=== PATIENT | male | born 1950 | race Caucasian/White ===

== ENCOUNTER 2021-08-03 11:54 | Outpatient (RCR) | payer MEDICARE, MEDICAID, SELFPAY | END 2021-11-04 10:21 | disposition home or self-care (01) | LOC: HO.WCC 11:54 | PROVIDERS: PCP Internal Medicine; Visit Provider Physician Assistant | DX: Z09 Encounter for follow-up examination after completed treatment for conditions other than malignant neoplasm (principal); M06.871 Other specified rheumatoid arthritis, right ankle and foot; I73.9 Peripheral vascular disease, unspecified; I11.0 Hypertensive heart disease with heart failure; I50.9 Heart failure, unspecified; Z87.2 Personal history of diseases of the skin and subcutaneous tissue | CPT/HCPCS: 11042; 15275; 99212; 99213; Q4187 ==

== ENCOUNTER 2022-01-22 10:31 | Outpatient (REF) | payer MEDICARE, MEDICAID, SELFPAY ==
--- NOTE | ~2022-01-22 | CT_ITS ---
EXAMINATION: CT FOOT WITH CONTRAST, RIGHT CLINICAL INFORMATION: Chronic ulcer. COMPARISON: None. TECHNIQUE: CT scan of the right foot reconstruction imaging performed at the acquisition workstation. This CT examination was performed using dose optimization techniques as appropriate, variously including the following: *Automated exposure control *Adjustment of mA and/or kV according to patient size (this includes techniques or standardized protocols for targeted exams where dose is matched to indication/reason for exam; i.e. extremities or head) *Use of iterative reconstruction technique DLP: 196 mGy-cm FINDINGS: I do not see an ulceration. There is prominent arterial calcification throughout. TALOCRURAL JOINT: Severe diffuse joint space narrowing throughout with some associated subchondral cystic change. SUBTALAR JOINTS: Diffuse joint space narrowing throughout. Talonavicular joint diffuse joint space narrowing with subchondral cystic change and marginal osteophytes. 1st tarsometatarsal joint diffuse joint space narrowing. METATARSOPHALANGEAL JOINTS: There is malalignment with lateral subluxation and lateral tilt of the proximal phalanges with respect to the heads of the metatarsals. With respect to the great toe this results in prominent hallux valgus with uncovering of at least the medial half of the metatarsal head. Severe joint space narrowing indicative of arthrosis. With regards to the great toe, I do not clearly see the distal phalanx which may have been surgically resected. CT/CT foot RT w con IMPRESSION: No ulceration detected. 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 Similar-appearing subluxation and valgus deformity of the remaining 2nd through 5th metatarsophalangeal joints. 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
[2022-01-22 11:18] LABS: Blood Urea Nitrogen 15 mg/dL (9-16); Estimated Glomerular Filt Rate > 60
[2022-01-22] MEDS: iohexoL 350 MG/ML 100 ML INFUS..BTL 85 ML IV (11:51)
== END 2022-01-22 10:32 | disposition home or self-care (01) ==
LOC: HO.CT 10:31
PROVIDERS: PCP Internal Medicine; Visit Provider Physician Assistant
DX: L97.512 Non-pressure chronic ulcer of other part of right foot with fat layer exposed (principal)
CPT/HCPCS: 36415; 73701; 82565; 84520; Q9967